=== PATIENT | female | born 1995 | race Caucasian/White ===

== ENCOUNTER 2019-12-24 12:08 | Inpatient (IN) | payer MEDICAID, SELFPAY ==
[2019-12-24] VITALS (7 sets, daily range): BP systolic 117–140; BP diastolic 69–93; PULSE 84–117; RESP 16–22; TEMP 36.6–37; O2SAT 95–97; BMI 31.0; BMI 31.1
--- NOTE | 2019-12-24 12:28 | EKG12_ITS ---
Test Reason : DYSRHYTHMIA Blood Pressure : / mmHG Vent. Rate : 114 BPM Atrial Rate : 114 BPM P-R Int : 132 ms QRS Dur : 090 ms QT Int : 340 ms P-R-T Axes : 070 063 039 degrees QTc Int : 468 ms Sinus tachycardia Right atrial enlargement Nonspecific ST and T wave abnormality Abnormal ECG Confirmed by ALEXIS LEVIN, TATYANA ([id number]), scientific editor ERNESTINA MEADOWS ([id number]) on 12/28/2019 10:41:57 AM Referred By: JENISE Confirmed By:TATYANA ESPINOZA MD
--- NOTE | 2019-12-24 12:29 | ED.VISSUMM ---
- ER Visit Summary Date of Service: 12/24/19 Chief Complaint: My lungs hurt and I have upper abdominal pain for 2 weeks History of Present Illness: The patient is a 24 F history of rheumatoid arthritis and migraine headaches. States the last 2 weeks she has had epigastric abdominal pain. States her lungs hurt. She is had a subjective fever and cough. She is also had nausea, vomiting and diarrhea. Denies any hematemesis. No documented fever. No recent travel, surgery or immobilization. No leg pain or swelling. No history of DVT or PE. No hemoptysis. Physical Examination: Young female no acute distress vital signs stable afebrile. Pulse ox 95% on room air no signs of hypoxia. HEENT exam mild dry mucous membranes. Neck nontender no lymphadenopathy. Lungs clear to auscultation bilaterally. Heart regular rhythm rate about 110 no murmur. Abdomen soft. Mild epigastric tenderness. No rebound, guarding or rigidity. No Box sign. No McBurney's point tenderness. No distention. Patient is moving all 4 extremities. Calves are nontender without edema or cords. Neurologically she is awake alert with no focal motor deficits. Test Results: White count of 18,100. H&H 11 and 34. Platelets 744,000. Electrolytes show sodium 131. Potassium is 3. Normal creatinine gap. Liver enzymes are elevated total bilirubin 2.3 alk phos 251. Lipase normal. Lactate normal 1.3. Chest x-ray shows no acute process. Radiologist says there may be findings in the base but there not impressive on the x-ray themselves. Right upper quadrant ultrasound shows no gallstones. No pericholecystic fluid is read as normal by the radiologist. Urinalysis shows positive nitrates and microscopic blood. Greater than 100 white cells in the micro and 3+ bacteria sent for culture. I will give her a dose of Rocephin. Emergency Department Course and Treatment: Patient treated with IV fluids for nausea and vomiting and Zofran. Labs are being obtained. IV Rocephin. Patient treated with IV fluids and Zofran. On repeat exam at 1537 she is having discomfort was given also morphine a second dose of Zofran. She normally over test results. I do not have a specific cause at this time for her white count and her elevated liver enzymes. The ultrasound was read as normal. I am obtaining a CAT scan which to be checked out to the afternoon physician and the urinalysis micro is pending also. Treatment Plan: I have the hospitalist on page for possible admission. Disposition: Impression: Acute nausea, vomiting and diarrhea Acute epigastric abdominal pain. Acute leukocytosis uncertain etiology Acute elevated liver enzymes of uncertain etiology Acute UTI This note was generated with [employer] dictation software. It may contain incorrect words, spelling, and punctuation that were not noted in review of the chart prior to signing ED Disposition - Plan for ED Patient: Referrals: Care Physician,No Primary [Primary Care Provider] -
[2019-12-24] MEDS: Ondansetron 4 MG/2 ML Vial IV ×2 (12:37→16:46)
[2019-12-24] MEDS: 0.9% Normal Saline 1,000 ML 1000 ML IV (12:37)
[2019-12-24 12:47] LABS: Absolute Lymphocyte Count 0.95 X10^3/uL (0.83-4.51); Absolute Neutrophil Count 15.6 X10^3/uL (2.0-7.7); Basophil# 0.04 X10^3/uL; Basophil% 0.2 % (0-1); Eosinophil# 0.15 X10^3/uL; Eosinophils% 0.8 % (0-5); Hematocrit 34.2 % (37-47); Hemoglobin 11.3 g/dL (12.0-15.0); Lymphocyte # 0.95 X10^3/ul (4.0); Lymphocyte % 5.2 % (19-41); Mean Corpuscular Volume 96.9 fL (81-99); Monocyte# 1.16 X10^3/uL; Monocyte% 6.4 % (0-10); NRBC Flagged by Analyzer 0 % (0-5); Neutrophil # 15.63 X10^3/uL (2.7-7.7); Neutrophil % 86.2 % (47-70); Platelet Count 744 K/mm3 (150-450); RBC Distribution Width CV 12.9 % (11.6-14.6); RBC Distribution Width SD 45.6 fl (35.1-43.9); Red Blood Count 3.53 M/mm3 (4.2-5.4); White Blood Count 18.1 K/mm3 (4.4-11.0)
--- NOTE | 2019-12-24 12:51 | RAD_ITS ---
STUDY: X-RAY CHEST REASON FOR EXAM: Female, 24 years old. SOB, PRODUCTIVE, N/V/D, ABD PAIN, BODY ACHES ALMOST 2 WEEKS TECHNIQUE: Single AP portable view of the chest. COMPARISON: None. FINDINGS: EKG electrodes are seen. Hyperinflation. Mild degree of increased interstitial markings at the lung bases with areas of confluence worse on the left side. A viral type of infiltrate should be ruled out. There is no demonstrated pleural abnormality. Normal size heart. Normal mediastinum and alan. Normal visualized pulmonary arteries. Normal visualized aortic arch and descending thoracic aorta. Normal visualized thoracic spine. Normal visualized ribs, clavicles, and shoulders. There is no demonstrated abnormality of the visualized soft tissue structures of the upper abdomen. RAD/Chest 1 View (Portable) IMPRESSION: Mild increased markings at the lung bases suggestive of possible viral infiltrate. Electronically Signed: Artem Nguyen, at 13:06 EDT , Service support ,
[2019-12-24 13:09] LABS: AST(SGOT) 136 U/L (15-37); Alanine Aminotransfer ALT/SGPT 78 U/L (13-56); Alkaline Phosphatase 255 U/L (45-117); Anion Gap 13 (5-15); BUN 9 mg/dL (7-18); BUN/Creat Ratio 11.3 RATIO (10-20); Bilirubin, Direct 1.39 mg/dL (0.00-0.30); Calcium,Total 9.4 mg/dL (8.5-10.1); Chloride 93 mmol/L (98-107); EST Glomerular Filtration Rate 93 mL/min (>60); Est Glom Filt Rate - Afr Amer 113 mL/min (>60); Estimated Creatinine Clearance 109.38 ml/min; Globulin 6.9 g/dL (2.2-4.2); Glucose 102 mg/dL (74-106); Lipase 46 U/L (73-393); Protein, Total 8.9 g/dL (6.4-8.2); Sodium Level 131 mmol/L (136-145)
--- NOTE | 2019-12-24 13:31 | US_ITS ---
STUDY: ABDOMINAL ULTRASOUND - RIGHT UPPER QUADRANT REASON FOR VISIT: Female, 24 years old ABDOMEN AND CHEST PAIN TECHNIQUE: Ultrasound evaluation of the right upper quadrant was performed with real-time and static abdi-scale imaging. TECHNICAL QUALITY: Adequate. COMPARISON: None. FINDINGS: Liver: The liver measures 15 cm. There is normal echogenicity of the liver. The bile ducts are within normal limits. There is hepatic color flow. The direction of portal flow is hepatopetal. There is no demonstrated mass lesion. Gallbladder: Normal distended gallbladder. The gallbladder wall measures 1.7 mm. There is a negative sonographic Box''s sign. There is no pericholecystic fluid. There are no gallstones. Common Bile Duct (C.B.D.): The common bile duct measures 1.7 mm. Pancreas: Normal size of the head, body and tail of the pancreas. There is normal echogenicity of the pancreas. There is no demonstrated pancreatic mass or cyst. Right Kidney: Normal size of the right kidney. The right kidney measures 10.8 cm x 5.9 cm x 5.6 cm. Normal renal cortex. The right cortex measures 1.9 cm. There is no demonstrated renal mass or cyst. There is no right hydronephrosis. US/Gallbladder IMPRESSION: Normal right upper quadrant ultrasound examination. Electronically Signed: Artem Nguyen, at 15:33 EDT , Service support ,
[2019-12-24 14:14] LABS: Lactic Acid 1.3 mmol/L (0.4-1.9)
--- NOTE | 2019-12-24 14:44 | ED.RN ---
ok to take pt out of covid precautions by
[2019-12-24 15:17] LABS: Mucous, Urine 0 SEEN /hpf (<or=2+); Squamous Epithelial Cells - UA 0 SEEN /hpf (5-10)
[2019-12-24 15:20] LABS: Color, Urine Yellow (Yellow); Glucose, Dipstick Normal (Normal); Ketone-Dipstick 50 mg/dl (Negative); Leukocyte Esterase-Dipstick 100 /ul (Negative); Nitrite-Dipstick Positive (Negative); Occult Blood-Urine 250 /ul (Negative); Protein-Dipstick 30 mg/dl (Negative); Urine Clarity Cloudy (Clear); Urine Urobilinogen 12 mg/dl (Normal); Urine pH 6.5 (5.0 - 8.0)
[2019-12-24 15:22] LABS: Urine Bilirubin Dipstick 3 mg/dL (Negative)
--- NOTE | 2019-12-24 15:40 | CT_ITS ---
STUDY: CT ABDOMEN AND PELVIS WITHOUT CONTRAST REASON FOR EXAM: Female, 24 years old. ABD PAIN WITH LEUKOCYTOSIS. Productive cough, N/V/D and body aches x 2 weeks. Hx of RA RADIATION DOSAGE (If Supplied By Facility): CTDIvol = ( 13.28 ) mGy, DLP = ( 1022.65 ) mGycm TECHNIQUE: Transaxial images were obtained from the dome of the diaphragm to the symphysis pubis without oral contrast, and without intravenous contrast. Sagittal and coronal images were reconstructed. Individualized dose optimization techniques were used for this CT. COMPARISON: None. FINDINGS: Hazy opacities in the lower lobes bilaterally, greater on the left. Heart size is normal. The liver is unremarkable. The gallbladder is unremarkable. The spleen and pancreas are unremarkable. The adrenal glands are normal. The kidneys are unremarkable. No stones or hydronephrosis. The aorta is normal in caliber. There is no free fluid, free air, or organized collection. No bowel obstruction or inflammatory change. Normal appendix. Urinary bladder is nondistended. Normal abdominal wall. Normal osseous structures. CT/Abdomen/Pelvis W IV Cont ONLY IMPRESSION: 1. Hazy, groundglass opacities in the lung bases, greater on the left. Findings are concerning for pneumonia, including possible viral etiology. Otherwise unremarkable CT abdomen and pelvis. Electronically Signed: Karina Alberts MD at 16:37 EDT Tel , Service support ,
[2019-12-24 15:44] LABS: Red Blood Cells-Urine > 100 SEEN /hpf (0-5); White Blood Cells 10-25 SEEN /hpf (0-5)
[2019-12-24 15:45] LABS: Bacteria 3+ /hpf (None Seen)
[2019-12-24] MEDS: Ceftriaxone 1 GM/50 ML BAG IV (16:35)
[2019-12-24] MEDS: morphine 8 MG/ML Syringe 6 MG IV (16:44)
--- NOTE | 2019-12-24 16:49 | PCM.HP.STD ---
Problem List (1) Pyelonephritis Status: Acute (2) Thrombocytosis Status: Acute (3) Intractable diarrhea Status: Acute (4) Hyponatremia Status: Acute (5) Hypokalemia Status: Acute (6) Abnormal LFTs Status: Acute (7) History of rheumatoid arthritis Status: Chronic (8) Normochromic normocytic anemia Status: Acute History of Present Illness Date of Admission: 12/24/19 Chief Complaint: diarrhea, nausea and vomiting, chest pain, dry cough, muscle pain The patient is a 24 year old F with a past medical history of rheumatoid arthritis, neuropathic pain for which she takes Neurontin and obesity who presented to the ED at [facility] [place] on next 1919 complaining of a two-week history of diarrhea, nausea/vomiting, diffuse muscle pain, dry cough, shortness of breath and chest pain. She denies any loss of smell or loss of taste. She has no sick contacts. She says she was having 8-10 stools a day. She denies dysuria, rigors, fevers. Vital signs at presentation to the emergency department are temperature 97.8, pulse rate 117, blood pressure 137/93, respiratory rate 22 and she was 95% saturated on room air. White blood cell count is elevated at 18.1 with left shift. Hemoglobin is 11.3 with normochromic normocytic indices and the platelet count was increased at 744,000. Sodium is low at 131 and the potassium is low at 3.0. Serum bicarb is 25. The BUN is 9 with a creatinine of 0.8. Total bilirubin was increased at 2.3 with a direct bilirubin of 1.39. AST is 136 and the ALT is 78 with an alkaline phosphatase of 255. Lipase is 46 and the serum albumin is low at 2. UA shows greater than 100 RBCs per high-power field and 10-25 WBCs. There was 3+ bacteria and it was nitrite positive. She had positive ketones. Chest x-ray per my review shows atelectasis in the bases however the radiologist reported increased markings suggestive of possible viral infiltrate. Right upper quadrant ultrasound was normal. CT scan of the abdomen and pelvis showed hazy groundglass opacities in the lung bases, greater on the left which was concerning for pneumonia. The abdomen and pelvis were unremarkable. She is being admitted for pyelonephritis but will keep in the ED until the COVID test comes back in light of the abn LFT's and the ground glass infiltrates in both lung bases. Past Medical History Past Medical History (Chronic Problems): Chronic Problems History of rheumatoid arthritis (Chronic) Allergies No Known Allergies Allergy (Verified 12/24/19 12:10) Home Medications: Ambulatory Orders Medication Instructions Recorded Duloxetine HCl 60 mg PO DAILY 12/24/19 Gabapentin 1,200 mg PO QHS 12/24/19 Gabapentin 600 mg PO DAILY@1200 12/24/19 Hydroxychloroquine [Plaquenil] 200 mg PO DAILYCM 12/24/19 Sumatriptan Succinate [Imitrex] 100 mg PO DAILY PRN PRN 12/24/19 Surgical History: no surgical history Psychiatric History: Depression - ? 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 No shaking chills/rigors, Malaise, Weakness. Denies: Chills, Weight Change Eyes: Denies: Blurred vision, Redness, Vision Change HEENT: Denies: Difficulty Hearing, Difficulty Swallowing, Eye Pain, Head Aches, Sinus Congestion, Sinus Drainage, Sore Throat Cardiovascular: Reports: Chest Pain - she describes burning in her anterior chest wall that is constant, Light Headedness. Denies: Edema, Palpitations Respiratory: Reports: Cough - non-productive, Shortness of Breath, Shortness of breath at rest, Shortness of breath upon exertion. Denies: Hemoptysis, Sputum production, Wheezing Gastrointestinal: Reports: Abdominal Pain - in the R upper abdomen, Diarrhea, Nausea, Vomiting, - - decreased appetite. Denies: Hematemesis, Hematochezia Genitourinary: Denies: Dysuria, Frequency Gynecological: Denies: Vaginal discharge Musculoskeletal: Reports: Joint Pain, Joint Tenderness, Muscle pain. Denies: Neck Pain Skin: Denies: Jaundice, Rash, Wounds Neurological: Denies: Balance problems, Slurred speech, Confusion, Focal weakness, Numbness, Tingling, Tremor, Seizures Psychiatric: Reports: Depression - possibly. Denies: Anxiety, Homicidal Ideations, Suicidal Ideations Endocrine: Denies: Hx of Thyroiditis Hematologic/ Lymphatic: Denies: Easy Bruising, Easy Bleeding, Hx of blood clot VTE Information - Inpt Only VTE Present on Admission: No VTE Mechan Device Prophylaxis: Knee High TRAVON Hose VTE Pharm Prophylaxis ordered?: Yes Patient Problems: Active and Suspected Problems Pyelonephritis (Acute) Thrombocytosis (Acute) Intractable diarrhea (Acute) Hyponatremia (Acute) Hypokalemia (Acute) Abnormal LFTs (Acute) Normochromic normocytic anemia (Acute) - Physical Exam Vitals/I&O's: Vital Signs Temp Pulse Resp BP Pulse Ox 97.8 F 108 H 20 H 122/82 H 96 12/24/19 12:10 12/24/19 14:48 12/24/19 14:48 12/24/19 14:48 12/24/19 14:48 Oxygen Delivery Method Room Air Weight: 204 lb 2.369 oz Body Mass Index (BMI) 31.0 Intake and Output for Last 24 Hours 12/22/19 12/23/19 12/24/19 23:59 23:59 23:59 Intake Total 1000 / 1000 Balance 1000 / 1000 General: Alert, Oriented x3, Cooperative, - - she looks ill and tired. She is pale HEENT: Atraumatic, PERRLA, EOMI, Normocephalic Oral: No Gingival or Mucosal Lesions/ Ulcerations, Dry Mucosa Neck: Supple, No JVD, Negative Carotid Bruits, No Nodes, No Nuchal Rigidity, Trachea Midline Lungs: No rhonchi, No wheeze, Diminished - with a poor inspiratory effort, Rales - in the bases only Cardiovascular: Regular Rhythm, No murmurs, No Ectopic Activity, No rub noted, No Gallop, Tachycardic Abdomen: Bowel Sounds Present, Soft, Non-Distended, Tender - she complained of tenderness in the RUQ with palpation...no guarding and when I pressed on the abd in the RUQ with the stethoscop she had no c/o pain until I started to palpate Extremities: No clubbing, No cyanosis, No edema, Capillary Refill Less than 3 Seconds, No Calf Tenderness, Peripheral Pulses Normal Skin: No breakdown, - - she has a red rash behind the R ear.... Musculoskeletal: No Muscle Wasting, - - no red swollen joints. She is very tender to palpation at the right costophrenic angle Neurological: Cranial nerves II-XII grossly intact, Neuro grossly intact Psych/Mental Status: Normal Affect, Appropriate Laboratory Results 12/24/19 12:05: WBC 18.1 H, RBC 3.53 L, Hgb 11.3 L, Hct 34.2 L, MCV 96.9, MCH 32.0, MCHC 33.0, RDW Std Deviation 45.6 H, RDW Coeff of Maite 12.9, Plt Count 744 H, MPV 10.0, Immature Gran % (Auto) 1.200 H, Neut % (Auto) 86.2 H, Lymph % (Auto) 5.2 L, Elmore % (Auto) 6.4, Eos % (Auto) 0.8, Baso % (Auto) 0.2, Absolute Neuts (auto) 15.6 H, Absolute Lymphs (auto) 0.95, Nucleated RBC % 0 12/24/19 12:05: Sodium 131 L, Potassium 3.0 L, Chloride 93 L, Carbon Dioxide 25.0, Anion Gap 13, BUN 9, Creatinine 0.80, Estim Creat Clear Calc 109.38, Est GFR (MDRD) Af Amer 113, Est GFR (MDRD) Non-Af 93, BUN/Creatinine Ratio 11.3, Glucose 102, Calcium 9.4, Total Bilirubin 2.30 H, Direct Bilirubin 1.39 H, AST 136 H, ALT 78 H, Alkaline Phosphatase 255 H, Total Protein 8.9 H, Albumin 2.0 L, Globulin 6.9 H, Lipase 46 L 12/24/19 13:35: Lactic Acid 1.3 12/24/19 15:03: Urine Color Yellow, Urine Clarity Cloudy, Urine pH 6.5, Ur Specific Lewis 1.010, Urine Protein 30 H, Urine Glucose (UA) Normal, Urine Ketones 50 H, Urine Occult Blood 250 H, Urine Nitrite Positive H, Urine Bilirubin 3 H, Urine Urobilinogen 12 H, Ur Leukocyte Esterase 100 H, Urine RBC > 100 SEEN, Urine WBC 10-25 SEEN, Ur Squamous Epith Cells 0 SEEN, Urine Bacteria 3+, Urine Mucus 0 SEEN Assessment/Plan All Active Problems Pyelonephritis (Acute) Thrombocytosis (Acute) Intractable diarrhea (Acute) Hyponatremia (Acute) Hypokalemia (Acute) Abnormal LFTs (Acute) Normochromic normocytic anemia (Acute) Impressions 1. Pyelonephritis 2. Bibasilar groundglass infiltrates associated with abnormal LFTs, diffuse myalgias, cough, diarrhea and N/V, thrombocytosis - COVID testing ordered 3. Thrombocytosis 4. Normochromic normocytic anemia 5. History of rheumatoid arthritis-on Plaquenil only 6. Chronic neuropathic pain on gabapentin 600 mg 3 times daily 7. Possible depression-she is on Cymbalta and denies history of depression, Cymbalta possibly being used for chronic pain 8. Abnormal LFTs Urine for streptococcal antigen Urine for Legionella antigen Respiratory panel Blood cultures ?2 Incentive spirometry Ambulatory pulse ox prior to DC maintain in the ED until the COVID test is resulted Rocephin 1 GM IV daily - received the first dose in the ED Lactic acid Stool for fecal leukocytes, enteric pathogen panel and Hemoccult Clear liquid diet pain control D DIMER DVT prophylaxis with Lovenox 40 mg subcu daily Protonix 40 mg IV daily Antiemetics Urine culture Inpatient E&M: 84339 Init Hosp L3
--- NOTE | 2019-12-24 18:36 | NURSING ---
Not up to floor yet. Ijeoma RN called ED to see why pt not up on floor. They are waiting on results of COVID.
[2019-12-24 18:43] LABS: CPK Total, Creatine Kinase 34 U/L (26-192)
[2019-12-24 19:41] LABS: Lactic Acid 1.1 mmol/L (0.4-1.9)
[2019-12-24 21:48] LABS: Magnesium 2.3 mg/dL (1.6-2.6); Phosphorus 3.6 mg/dL (2.5-4.9)
[2019-12-24] MEDS: 0.9% Saline Lock 10 ML Syringe IV ×2 (21:49→23:28)
[2019-12-24] MEDS: DULoxetine Hcl 30 MG Capsule PO (21:49)
[2019-12-24] MEDS: Gabapentin 600 MG Tablet PO (21:49)
[2019-12-24] MEDS: Hydroxychloroquine 200 MG Tablet PO (21:49)
[2019-12-24 22:18] LABS: D-Dimer Quantitative (DVT/PE) 1.82 FEU/ug/m (0.27-0.49)
[2019-12-24 22:24] LABS: Lactic Acid 1.8 mmol/L (0.4-1.9)
[2019-12-24] MEDS: Morphine 4 MG/ML Syringe IV (23:26)
[2019-12-24] MEDS: Ciprofloxacin 400 MG/200 ML BAG 200 MG IV (23:27)
--- NOTE | 2019-12-24 23:48 | NURSING ---
Chest Ct retimed per CT department d/t contrast timing, Dr. Jean aware from CT department.
[2019-12-25 03:30] VITALS: BP 107/50; PULSE 77; RESP 18; TEMP 37.1; O2SAT 96
[2019-12-25] MEDS: Enoxaparin 40 MG/0.4 ML Syringe SC (05:39)
--- NOTE | 2019-12-25 05:55 | EKG12_ITS ---
Test Reason : AM EKG Blood Pressure : / mmHG Vent. Rate : 101 BPM Atrial Rate : 101 BPM P-R Int : 144 ms QRS Dur : 096 ms QT Int : 536 ms P-R-T Axes : 066 053 066 degrees QTc Int : 695 ms Sinus tachycardia Nonspecific ST and T wave abnormality Prolonged QT Abnormal ECG When compared with ECG of 24-DEC-2019 12:54, MANUAL COMPARISON REQUIRED, DATA IS UNCONFIRMED Confirmed by ALEXIS LEVIN, TATYANA ([id number]), metropolitan editor ERNESTINA MEADOWS ([id number]) on 12/28/2019 11:02:30 AM Referred By: RONNIE Confirmed By:TATYANA ESPINOZA MD
[2019-12-25 06:39] LABS: Absolute Lymphocyte Count 1.42 X10^3/uL (0.83-4.51); Absolute Neutrophil Count 11.2 X10^3/uL (2.0-7.7); Basophil# 0.04 X10^3/uL; Basophil% 0.3 % (0-1); Eosinophil# 0.36 X10^3/uL; Eosinophils% 2.5 % (0-5); Hematocrit 29.2 % (37-47); Hemoglobin 9.7 g/dL (12.0-15.0); Lymphocyte # 1.42 X10^3/ul (4.0); Lymphocyte % 9.9 % (19-41); Mean Corp Hgb Conc 33.2 g/dL (32-36); Mean Corpuscular Hgb 32.4 pg (27.0-32.0); Mean Corpuscular Volume 97.7 fL (81-99); Mean Platelet Vol. 9.3 fl (6.2-12.0); Monocyte# 1.02 X10^3/uL; Monocyte% 7.1 % (0-10); NRBC Flagged by Analyzer 0 % (0-5); Neutrophil % 78.5 % (47-70); Platelet Count 682 K/mm3 (150-450); RBC Distribution Width CV 12.9 % (11.6-14.6); RBC Distribution Width SD 45.9 fl (35.1-43.9); Red Blood Count 2.99 M/mm3 (4.2-5.4); White Blood Count 14.3 K/mm3 (4.4-11.0)
[2019-12-25 07:16] LABS: ALB/GLOB Ratio 0.3 RATIO (0.9-2.4); AST(SGOT) 90 U/L (15-37); Alanine Aminotransfer ALT/SGPT 58 U/L (13-56); Albumin, Serum 1.8 g/dL (3.2-5.0); Alkaline Phosphatase 205 U/L (45-117); Anion Gap 10 (5-15); BUN 7 mg/dL (7-18); BUN/Creat Ratio 15.2 RATIO (10-20); Calcium,Total 8.7 mg/dL (8.5-10.1); Chloride 96 mmol/L (98-107); Creatinine, Serum 0.46 mg/dL (0.55-1.02); EST Glomerular Filtration Rate 176 mL/min (>60); Est Glom Filt Rate - Afr Amer 213 mL/min (>60); Estimated Creatinine Clearance 190.23 ml/min; Globulin 5.5 g/dL (2.2-4.2); Glucose 97 mg/dL (74-106); Magnesium 2.2 mg/dL (1.6-2.6); Phosphorus 3.9 mg/dL (2.5-4.9); Potassium 3.1 mmol/L (3.5-5.1); Protein, Total 7.3 g/dL (6.4-8.2); Sodium Level 133 mmol/L (136-145)
[2019-12-25 08:42] VITALS: O2SAT 95
[2019-12-25 08:47] VITALS: BP 114/47; PULSE 108; RESP 18; TEMP 37.1; O2SAT 98
[2019-12-25] MEDS: Ensure Clear 120 ML Liquid PO (08:51)
[2019-12-25] MEDS: Gabapentin 600 MG Tablet PO ×3 (08:52→17:14)
[2019-12-25] MEDS: Ciprofloxacin 400 MG/200 ML BAG 200 MG IV ×2 (08:52→21:27)
[2019-12-25] MEDS: Hydroxychloroquine 200 MG Tablet PO ×2 (08:55→17:13)
--- NOTE | 2019-12-25 09:00 | CT_ITS ---
STUDY: CTA CHEST REASON FOR EXAM: Female, 24 years old. R/O PE, COUGH ,SOB X 2 WEEKS. NEG FOR COVID RADIATION DOSAGE (If Supplied By Facility): CTDIvol = ( 10.01 ) mGy, DLP = ( 421.51 ) mGycm TECHNIQUE: The examination was performed with the intravenous administration of 100ML ISOVUE 370. Post-processing of the angiographic images was performed, with multiplanar reformation and 3D reconstruction. Individualized dose optimization techniques were used for this CT. COMPARISON: None. FINDINGS: Normal enhancement of the main pulmonary artery and right and left pulmonary arteries. Normal enhancement of the bilateral peripheral pulmonary arteries. There is no demonstrated pulmonary embolism. Normal thoracic aorta and visualized great vessels. There is no demonstrated aortic dissection. Normal heart and pericardium. Normal mediastinum. Normal hilar regions. Normal visualized trachea and bronchi. The lungs are well expanded. Throughout the pulmonary parenchyma are ill-defined appearance interlobar groundglass opacities throughout the lung parenchyma with small question of centrilobular nodules spread throughout. There appears to be a peripheral region of opacity likely showing peripheral lack of nodularity airspace disease most prominent within the lower lungs. Normal pleura. Normal chest wall structures. Normal osseous structures. Normal visualized upper abdomen. CT/CTA Chest W/WO Contrast IMPRESSION: 1. No evidence of pulmonary embolism or aortic dissection. 2. Diffuse areas of likely centrilobular groundglass opacities and punctate nodularity which is most concerning for underlying hypersensitivity pneumonitis. Underlying infectious airway mycobacterial infection is also a consideration with underlying vasculitis, pulmonary edema and bronchioloalveolar carcinoma less likely. Electronically Signed: Nikhil Rice DO at 9:50 EDT , Service support ,
--- NOTE | 2019-12-25 10:33 | PCM.PN.HOSP ---
Patient Problems: Active and Suspected Problems Pyelonephritis (Acute) Thrombocytosis (Acute) Intractable diarrhea (Acute) Hyponatremia (Acute) Hypokalemia (Acute) Abnormal LFTs (Acute) Normochromic normocytic anemia (Acute) Subjective: Feeling better today than when she came in. No not back to baseline, her pain has improved a little bit though she does have chronic back pain. Vitals/I&O's: Vital Signs Temp Pulse Resp BP Pulse Ox 98.8 F 108 H 18 114/47 L 98 12/25/19 08:47 12/25/19 08:47 12/25/19 08:47 12/25/19 08:47 12/25/19 08:47 Oxygen Delivery Method Room Air Weight: 204 lb 12.951 oz Body Mass Index (BMI) 31.1 Intake and Output for Last 24 Hours 12/23/19 12/24/19 12/25/19 23:59 23:59 23:59 Intake Total 1327.5 / 1327.5 1345.0 / 1345.0 Output Total 820 / 820 Balance 1327.5 / 1327.5 525.0 / 525.0 General: Alert, Oriented x3, Cooperative, No apparent distress HEENT: Atraumatic, PERRLA, EOMI, Normocephalic Oral: Moist Mucosa Neck: Supple, No JVD Lungs: Clear to auscultation, Normal air movement, No rhonchi, No wheeze, No rales Cardiovascular: Regular rate, Regular Rhythm, Normal S1, Normal S2, No murmurs Abdomen: Soft, Non Tender, Non-Distended, No Hepato-splenomegaly Extremities: No edema, Capillary Refill Less than 3 Seconds Skin: No rashes, No breakdown Neurological: Neuro grossly intact, Sensory exam intact to light touch and pain Psych/Mental Status: Normal Affect, Appropriate Microbiology Past 72 Hours 12/24/19 23:10 Mucosa - Nasopharyngeal Respiratory Panel (PCR) - Final 12/24/19 21:25 Urine, Random Streptococcus pneumoniae Antigen (M - Final 12/24/19 21:25 Urine, Random Legionella Antigen - Final Laboratory Results 12/24/19 12:05: WBC 18.1 H, RBC 3.53 L, Hgb 11.3 L, Hct 34.2 L, MCV 96.9, MCH 32.0, MCHC 33.0, RDW Std Deviation 45.6 H, RDW Coeff of Maite 12.9, Plt Count 744 H, MPV 10.0, Immature Gran % (Auto) 1.200 H, Neut % (Auto) 86.2 H, Lymph % (Auto) 5.2 L, [place] % (Auto) 6.4, Eos % (Auto) 0.8, Baso % (Auto) 0.2, Absolute Neuts (auto) 15.6 H, Absolute Lymphs (auto) 0.95, Nucleated RBC % 0 12/24/19 12:05: Sodium 131 L, Potassium 3.0 L, Chloride 93 L, Carbon Dioxide 25.0, Anion Gap 13, BUN 9, Creatinine 0.80, Estim Creat Clear Calc 109.38, Est GFR (MDRD) Af Amer 113, Est GFR (MDRD) Non-Af 93, BUN/Creatinine Ratio 11.3, Glucose 102, Calcium 9.4, Total Bilirubin 2.30 H, Direct Bilirubin 1.39 H, AST 136 H, ALT 78 H, Alkaline Phosphatase 255 H, Total Protein 8.9 H, Albumin 2.0 L, Globulin 6.9 H, Lipase 46 L 12/24/19 12:05: Total Creatine Kinase 34 12/24/19 12:15: Phosphorus 3.6, Magnesium 2.3 12/24/19 13:35: Lactic Acid 1.3 12/24/19 15:03: Urine Color Yellow, Urine Clarity Cloudy, Urine pH 6.5, Ur Specific [place] 1.010, Urine Protein 30 H, Urine Glucose (UA) Normal, Urine Ketones 50 H, Urine Occult Blood 250 H, Urine Nitrite Positive H, Urine Bilirubin 3 H, Urine Urobilinogen 12 H, Ur Leukocyte Esterase 100 H, Urine RBC > 100 SEEN, Urine WBC 10-25 SEEN, Ur Squamous Epith Cells 0 SEEN, Urine Bacteria 3+, Urine Mucus 0 SEEN 12/24/19 17:43: COVID-19 (GERI) Not Detected 12/24/19 18:55: Lactic Acid 1.1 12/24/19 21:50: D-Dimer Quant (PE/DVT) 1.82 H* 12/24/19 21:50: Lactic Acid 1.8 12/25/19 06:23: WBC 14.3 H, RBC 2.99 L, Hgb 9.7 L, Hct 29.2 L, MCV 97.7, MCH 32.4 H, MCHC 33.2, RDW Std Deviation 45.9 H, RDW Coeff of [place] 12.9, Plt Count 682 H, MPV 9.3, Immature Gran % (Auto) 1.700 H, Neut % (Auto) 78.5 H, Lymph % (Auto) 9.9 L, [place] % (Auto) 7.1, Eos % (Auto) 2.5, Baso % (Auto) 0.3, Absolute Neuts (auto) 11.2 H, Absolute Lymphs (auto) 1.42, Nucleated RBC % 0 12/25/19 06:23: Sodium 133 L, Potassium 3.1 L, Chloride 96 L, Carbon Dioxide 27.0, Anion Gap 10, BUN 7, Creatinine 0.46 L, Estim Creat Clear Calc 190.23, Est GFR (MDRD) Af Amer 213, Est GFR (MDRD) Non-Af 176, BUN/Creatinine Ratio 15.2, Glucose 97, Calcium 8.7, Phosphorus 3.9, Magnesium 2.2, Total Bilirubin 1.90 H, AST 90 H, ALT 58 H, Alkaline Phosphatase 205 H, Total Protein 7.3, Albumin 1.8 L, Globulin 5.5 H, Albumin/Globulin Ratio 0.3 L 12/25/19 06:23: Phosphorus Cancelled Current Medications Acetaminophen (Tylenol) 650 mg PO Q6H PRN PRN PRN Reason: Pain Score 1-10/Temp > 100.7 F Duloxetine HCl (Cymbalta) 30 mg PO QHS [facility] Enoxaparin Sodium (Lovenox) 40 mg SC DAILY@0600 [facility] Last Admin: 12/25/19 05:39 Dose: 40 mg Documented by: Gabapentin (Neurontin) 600 mg PO TIDCM [facility] Last Admin: 12/25/19 08:52 Dose: 600 mg Documented by: Guaifenesin (Robitussin) 20 ml PO Q4H PRN PRN PRN Reason: COUGH Hydroxychloroquine Sulfate (Plaquenil) 200 mg PO BIDCM [facility] Last Admin: 12/25/19 08:55 Dose: 200 mg Documented by: Ciprofloxacin (Cipro) 400 mg in 200 mls @ 200 mls/hr IV Q12 [facility] Stop: 12/31/19 22:01 Last Admin: 12/25/19 08:52 Dose: 200 mls/hr Documented by: Potassium Chloride 20 meq/ (Lactated Ringer's) 1,010 mls @ 150 mls/hr IV .[id number] [facility] Last Infusion: 12/25/19 08:52 Dose: 0 mls/hr Documented by: Pantoprazole Sodium 40 mg/ (Sodium Chloride) 110 mls @ 330 mls/hr IV Q24 [facility] Last Infusion: 12/24/19 23:28 Dose: Infused Documented by: Sodium Chloride () 250 mls @ 15 mls/hr IV .[id number] PRN PRN Reason: Saline Flush Sodium Chloride () 250 mls @ 15 mls/hr IV .[id number] PRN PRN Reason: Additional IVPB Infusion Morphine Sulfate () 4 mg IV Q3H PRN PRN PRN Reason: Pain Score 6-10/10 Last Admin: 12/24/19 23:26 Dose: 4 mg Documented by: Nutritional Formula (Lactose Free) (Ensure Clear) 120 ml PO TIDCM [facility] Last Admin: 12/25/19 08:51 Dose: 120 ml Documented by: Oxycodone HCl (Oxyir) 5 - 10 mg PO Q4H PRN PRN PRN Reason: Pain Score 4-5/10 Prochlorperazine Edisylate (Compazine Iv) 5 mg IV Q4H PRN PRN PRN Reason: Breakthrough nausea/vomiting Sodium Chloride () 10 - 40 ml IV UD PRN PRN Reason: SALINE FLUSH Last Admin: 12/24/19 23:28 Dose: 10 ml Documented by: Zolpidem Tartrate (Ambien (Generic)) 5 mg PO QHS PRN PRN PRN Reason: INSOMNIA STROKE Vital Signs/Narrative: Vital Signs Temp Pulse Resp BP Pulse Ox 12/25/19 08:47 98.8 F 108 H 18 114/47 L 98 12/25/19 08:42 95 Medical Necessity - Tobacco Use Smoking Status: Never smoker Tobacco Use: Non-smoker Assessment/Plan All Active Problems Pyelonephritis (Acute) Thrombocytosis (Acute) Intractable diarrhea (Acute) Hyponatremia (Acute) Hypokalemia (Acute) Abnormal LFTs (Acute) Normochromic normocytic anemia (Acute) 1. Pyelonephritis/elevated LFTs -UA is fairly significant for UTI, urine cultures pending -Continue with Cipro IV twice daily for now she would like to stay 1 more day to see if she can feel better. -Pyelonephritis infection is the likely culprit for her thrombocytosis and elevated d-dimer -Bilirubin is trending down, and CT of her abdomen pelvis as well as her gallbladder ultrasound were negative for any gallbladder pathology -Liver is unremarkable -Continue to trend LFTs, she has no previous labs in our system -COVID test negative and there is an alternative diagnosis 2. RA/normocytic normochromic anemia -Her anemia is likely chronic secondary to her RA -Continue with her Plaquenil 3. migraines with chronic narcotic -Stable -Continue with Cymbalta, gabapentin, and Imitrex DVT: Lovenox Inpatient E&M: 22483 Subs Hosp L2
--- NOTE | 2019-12-25 11:17 | NURSING ---
Pt does not wish for this nurse to call anyone with mason;y update
--- NOTE | 2019-12-25 11:44 | CASEMGMT ---
LENY TYSON assessment: Face to Face with patient for initial transition planning/care coordination assessment. LENY TYSON introduced self and role at [facility], pt voices understanding and consents to assessment at this time. Pt is lying in bed in no distress at this time. Pt is A/Ox4 at this time and answers all questions appropriately at this time. Care providers, pharmacy, and demographics verified/updated at this time. Presentation: SOB, N/V/D, Abd pain, body aches for 2 weeks Admitting dx: Pyelonephritis PCP: Pt states recently moved here and does not have PCP in area. This LENY TYSON attempted to print local PCP list for pt at this time without success. Pt aware that she can look up in-network PCP's on [facility] website, voices understanding. Specialists: Pt states no current specialists. Preferred Pharmacy: [facility] Insurance: [facility] community plan/[employer] Prescription Benefit: Yes Living Will/HPOA: Pt states does not have LW/HPOA and declines AD info at this time. LNOK: Andrzej Tiwari, sig other Living Arrangements: Pt states lives with sig other in mobile home and states no concerns at home at this time. Pt states is independent with ADL's. Transportation: Pt states drives self when she has a car and states no transportation concerns at this time. DME/HHC: Pt states no DME or need for any DME at this time. Pt states no hx of HHC or SNF in the past. Pt states no concerns with going home at time of discharge. Pt states is unemployed. Pt states does not smoke or drink ETOH. Pt states no further concerns/needs at this time. CM to follow for any further discharge planning/needs. Advised pt to ask for CM if any further questions/concerns/needs arise, voices understanding. Pt Goal: Home Plan: [place] LENY TYSON
[2019-12-25] MEDS: Rizatriptan Benzoate 10 MG Tablet PO (13:16)
[2019-12-25 14:36] VITALS: BP 123/58; PULSE 108; RESP 18; TEMP 37; O2SAT 97
[2019-12-25] MEDS: oxyCODONE 5 MG Tablet PO (16:05)
[2019-12-25 20:37] VITALS: BP 127/77; PULSE 119; RESP 16; TEMP 36.9; O2SAT 94
[2019-12-25] MEDS: Acetaminophen 325 MG Tablet 650 MG PO (20:39)
[2019-12-25] MEDS: DULoxetine Hcl 30 MG Capsule PO (21:17)
[2019-12-26 02:44] VITALS: BP 121/71; PULSE 101; RESP 18; TEMP 36.8; O2SAT 94
[2019-12-26] MEDS: Enoxaparin 40 MG/0.4 ML Syringe SC (04:57)
[2019-12-26 05:34] LABS: Absolute Lymphocyte Count 1.26 X10^3/uL (0.83-4.51); Absolute Neutrophil Count 8.4 X10^3/uL (2.0-7.7); Basophil# 0.06 X10^3/uL; Basophil% 0.5 % (0-1); Eosinophil# 0.37 X10^3/uL; Eosinophils% 3.2 % (0-5); Hematocrit 28.7 % (37-47); Hemoglobin 9.5 g/dL (12.0-15.0); Lymphocyte # 1.26 X10^3/ul (4.0); Lymphocyte % 10.8 % (19-41); Mean Corp Hgb Conc 33.1 g/dL (32-36); Mean Corpuscular Hgb 32.5 pg (27.0-32.0); Mean Corpuscular Volume 98.3 fL (81-99); Mean Platelet Vol. 9.4 fl (6.2-12.0); Monocyte% 11.1 % (0-10); NRBC Flagged by Analyzer 0 % (0-5); Neutrophil # 8.38 X10^3/uL (2.7-7.7); Neutrophil % 71.7 % (47-70); POSITIVE COUNT YES; RBC Distribution Width SD 46.8 fl (35.1-43.9); Red Blood Count 2.92 M/mm3 (4.2-5.4); White Blood Count 11.7 K/mm3 (4.4-11.0)
[2019-12-26 05:51] LABS: Differential Indicated SCAN CRITERIA MET; Platelet Count 770 K/mm3 (150-450)
[2019-12-26] MEDS: oxyCODONE 5 MG Tablet PO ×3 (06:01→21:54)
[2019-12-26] MEDS: guaiFENesin 10 ML UDC (200MG/10ML) 20 ML PO ×3 (06:01→21:53)
[2019-12-26 06:06] LABS: ALB/GLOB Ratio 0.3 RATIO (0.9-2.4); AST(SGOT) 139 U/L (15-37); Alanine Aminotransfer ALT/SGPT 75 U/L (13-56); Albumin, Serum 1.7 g/dL (3.2-5.0); Alkaline Phosphatase 220 U/L (45-117); Anion Gap 9 (5-15); BUN 3 mg/dL (7-18); BUN/Creat Ratio 7.9 RATIO (10-20); Calcium,Total 8.6 mg/dL (8.5-10.1); Chloride 100 mmol/L (98-107); Creatinine, Serum 0.38 mg/dL (0.55-1.02); EST Glomerular Filtration Rate 219 mL/min (>60); Est Glom Filt Rate - Afr Amer 265 mL/min (>60); Estimated Creatinine Clearance 230.28 ml/min; Globulin 5.3 g/dL (2.2-4.2); Glucose 101 mg/dL (74-106); Potassium 3.7 mmol/L (3.5-5.1); Sodium Level 135 mmol/L (136-145)
[2019-12-26 06:31] LABS: Differential Comment SCANNED
[2019-12-26 07:36] VITALS: O2SAT 95
[2019-12-26 08:16] VITALS: BP 133/66; PULSE 96; RESP 16; TEMP 36.7; O2SAT 94
[2019-12-26] MEDS: Hydroxychloroquine 200 MG Tablet PO ×2 (08:24→15:55)
[2019-12-26] MEDS: Gabapentin 600 MG Tablet PO ×3 (08:24→15:56)
[2019-12-26] MEDS: Ciprofloxacin 400 MG/200 ML BAG 200 MG IV ×2 (09:08→21:54)
--- NOTE | 2019-12-26 09:53 | PCM.PN.HOSP ---
Patient Problems: Active and Suspected Problems Pyelonephritis (Acute) Thrombocytosis (Acute) Intractable diarrhea (Acute) Hyponatremia (Acute) Hypokalemia (Acute) Abnormal LFTs (Acute) Normochromic normocytic anemia (Acute) Subjective: Doing little bit better today Vitals/I&O's: Vital Signs Temp Pulse Resp BP Pulse Ox 98.1 F 96 16 133/66 H 94 12/26/19 08:16 12/26/19 08:16 12/26/19 08:16 12/26/19 08:16 12/26/19 08:16 Oxygen Delivery Method Room Air Weight: 204 lb 12.951 oz Body Mass Index (BMI) 31.1 Intake and Output for Last 24 Hours 12/24/19 12/25/19 12/26/19 23:59 23:59 23:59 Intake Total 1327.5 / 1327.5 4692.5 / 4692.5 1999 Output Total 1620 / 1620 950 / 950 Balance 1327.5 / 1327.5 3072.5 / 3072.5 1050 / 1050 General: Alert, Oriented x3, Cooperative, No apparent distress HEENT: Atraumatic, PERRLA, EOMI, Normocephalic Oral: Moist Mucosa Neck: Supple, No JVD Lungs: Clear to auscultation, Normal air movement, No rhonchi, No wheeze, No rales Cardiovascular: Regular rate, Regular Rhythm, Normal S1, Normal S2, No murmurs Abdomen: Soft, Non Tender, Non-Distended, No Hepato-splenomegaly Extremities: No edema, Capillary Refill Less than 3 Seconds Skin: No rashes, No breakdown Neurological: Neuro grossly intact, Sensory exam intact to light touch and pain Psych/Mental Status: Normal Affect, Appropriate Microbiology Past 72 Hours 12/24/19 23:10 Mucosa - Nasopharyngeal Respiratory Panel (PCR) - Final 12/24/19 21:25 Urine, Random Streptococcus pneumoniae Antigen (M - Final 12/24/19 21:25 Urine, Random Legionella Antigen - Final Laboratory Results 12/26/19 05:18: WBC 11.7 H, RBC 2.92 L, Hgb 9.5 L, Hct 28.7 L, MCV 98.3, MCH 32.5 H, MCHC 33.1, RDW Std Deviation 46.8 H, RDW Coeff of Maite 13.0, Plt Count 770 H*, MPV 9.4, Immature Gran % (Auto) 2.700 H, Neut % (Auto) 71.7 H, Lymph % (Auto) 10.8 L, [place] % (Auto) 11.1 H, Eos % (Auto) 3.2, Baso % (Auto) 0.5, Absolute Neuts (auto) 8.4 H, Absolute Lymphs (auto) 1.26, Nucleated RBC % 0, Differential Comment SCANNED, Diff Path Review November foll 12/26/19 05:18: Sodium 135 L, Potassium 3.7, Chloride 100, Carbon Dioxide 26.0, Anion Gap 9, BUN 3 L, Creatinine 0.38 L, Estim Creat Clear Calc 230.28, Est GFR (MDRD) Af Amer 265, Est GFR (MDRD) Non-Af 219, BUN/Creatinine Ratio 7.9 L, Glucose 101, Calcium 8.6, Total Bilirubin 1.90 H, AST 139 H, ALT 75 H, Alkaline Phosphatase 220 H, Total Protein 7.0, Albumin 1.7 L, Globulin 5.3 H, Albumin/Globulin Ratio 0.3 L Current Medications Acetaminophen (Tylenol) 650 mg PO Q6H PRN PRN PRN Reason: Pain Score 1-10/Temp > 100.7 F Last Admin: 12/25/19 20:39 Dose: 650 mg Documented by: Duloxetine HCl (Cymbalta) 30 mg PO QHS [facility] Last Admin: 12/25/19 21:17 Dose: 30 mg Documented by: Enoxaparin Sodium (Lovenox) 40 mg SC DAILY@0600 [facility] Last Admin: 12/26/19 04:57 Dose: 40 mg Documented by: Gabapentin (Neurontin) 600 mg PO TIDCM [facility] Last Admin: 12/26/19 08:24 Dose: 600 mg Documented by: Guaifenesin (Robitussin) 20 ml PO Q4H PRN PRN PRN Reason: COUGH Last Admin: 12/26/19 06:01 Dose: 20 ml Documented by: Hydroxychloroquine Sulfate (Plaquenil) 200 mg PO BIDCM [facility] Last Admin: 12/26/19 08:24 Dose: 200 mg Documented by: Ciprofloxacin (Cipro) 400 mg in 200 mls @ 200 mls/hr IV Q12 [facility] Stop: 12/31/19 22:01 Last Admin: 12/26/19 09:08 Dose: 200 mls/hr Documented by: Potassium Chloride 20 meq/ (Lactated Ringer's) 1,010 mls @ 150 mls/hr IV .[id number] [facility] Last Infusion: 12/26/19 08:25 Dose: Infused Documented by: Pantoprazole Sodium 40 mg/ (Sodium Chloride) 110 mls @ 330 mls/hr IV Q24 [facility] Last Infusion: 12/26/19 08:45 Dose: Infused Documented by: Sodium Chloride () 250 mls @ 15 mls/hr IV .[id number] PRN PRN Reason: Saline Flush Sodium Chloride () 250 mls @ 15 mls/hr IV .[id number] PRN PRN Reason: Additional IVPB Infusion Morphine Sulfate () 4 mg IV Q3H PRN PRN PRN Reason: Pain Score 6-10/10 Last Admin: 12/24/19 23:26 Dose: 4 mg Documented by: Oxycodone HCl (Oxyir) 5 - 10 mg PO Q4H PRN PRN PRN Reason: Pain Score 4-5/10 Last Admin: 12/26/19 06:01 Dose: 5 mg Documented by: Prochlorperazine Edisylate (Compazine Iv) 5 mg IV Q4H PRN PRN PRN Reason: Breakthrough nausea/vomiting Rizatriptan Benzoate (Maxalt) 10 mg PO DAILY PRN PRN PRN Reason: MIGRAINE SYMPTOMS Last Admin: 12/25/19 13:16 Dose: 10 mg Documented by: Sodium Chloride () 10 - 40 ml IV UD PRN PRN Reason: SALINE FLUSH Last Admin: 12/24/19 23:28 Dose: 10 ml Documented by: Zolpidem Tartrate (Ambien (Generic)) 5 mg PO QHS PRN PRN PRN Reason: INSOMNIA STROKE Vital Signs/Narrative: Vital Signs Temp Pulse Resp BP Pulse Ox 12/26/19 08:16 98.1 F 96 16 133/66 H 94 12/26/19 07:36 95 Medical Necessity - Tobacco Use Smoking Status: Never smoker Tobacco Use: Non-smoker Assessment/Plan All Active Problems Pyelonephritis (Acute) Thrombocytosis (Acute) Intractable diarrhea (Acute) Hyponatremia (Acute) Hypokalemia (Acute) Abnormal LFTs (Acute) Normochromic normocytic anemia (Acute) 1. Pyelonephritis/elevated LFTs -UA is fairly significant for UTI, urine cultures pending -Continue with Cipro IV twice daily for now -Pyelonephritis and RA is the likely culprit for her thrombocytosis and elevated d-dimer -Bilirubin is trending down, and CT of her abdomen pelvis as well as her gallbladder ultrasound were negative for any gallbladder pathology -Liver is unremarkable -Continue to trend LFTs, she has no previous labs in our system -COVID test negative and there is an alternative diagnosis 2. RA/normocytic normochromic anemia -Her anemia is likely chronic secondary to her RA -Continue with her Plaquenil 3. migraines with chronic narcotic -Stable -Continue with Cymbalta, gabapentin, and Imitrex DVT: Lovenox Inpatient E&M: 19934 Subs Hosp L2
--- NOTE | 2019-12-26 14:29 | NURSING ---
Update given to Pts mother
[2019-12-26 15:50] VITALS: BP 144/84; PULSE 98; RESP 18; TEMP 36.8; O2SAT 95
[2019-12-26] MEDS: proCHLORPERazine 10 MG/2 ML Vial 5 MG IV (15:55)
[2019-12-26 21:51] VITALS: BP 111/61; PULSE 116; RESP 16; TEMP 36.6; O2SAT 95
[2019-12-26] MEDS: DULoxetine Hcl 30 MG Capsule PO (21:59)
[2019-12-27 03:51] VITALS: BP 109/64; PULSE 103; RESP 16; TEMP 36.7; O2SAT 95
[2019-12-27] MEDS: Enoxaparin 40 MG/0.4 ML Syringe SC (04:33)
[2019-12-27] MEDS: oxyCODONE 5 MG Tablet PO (04:34)
[2019-12-27 06:05] LABS: Absolute Lymphocyte Count 1.98 X10^3/uL (0.83-4.51); Absolute Neutrophil Count 5.4 X10^3/uL (2.0-7.7); Basophil# 0.06 X10^3/uL; Basophil% 0.6 % (0-1); Eosinophil# 0.48 X10^3/uL; Eosinophils% 5.1 % (0-5); Hematocrit 29.2 % (37-47); Hemoglobin 9.6 g/dL (12.0-15.0); Lymphocyte # 1.98 X10^3/ul (4.0); Lymphocyte % 20.8 % (19-41); Mean Corp Hgb Conc 32.9 g/dL (32-36); Mean Corpuscular Hgb 32.9 pg (27.0-32.0); Mean Platelet Vol. 9.3 fl (6.2-12.0); Monocyte# 1.12 X10^3/uL; Monocyte% 11.8 % (0-10); NRBC Flagged by Analyzer 0 % (0-5); Neutrophil # 5.43 X10^3/uL (2.7-7.7); Neutrophil % 57.2 % (47-70); POSITIVE COUNT YES; RBC Distribution Width CV 13.3 % (11.6-14.6); RBC Distribution Width SD 48.3 fl (35.1-43.9); Red Blood Count 2.92 M/mm3 (4.2-5.4); White Blood Count 9.5 K/mm3 (4.4-11.0)
[2019-12-27 06:24] LABS: Differential Indicated SCAN CRITERIA MET; Platelet Count 772 K/mm3 (150-450)
[2019-12-27 06:29] LABS: ALB/GLOB Ratio 0.3 RATIO (0.9-2.4); AST(SGOT) 80 U/L (15-37); Alanine Aminotransfer ALT/SGPT 59 U/L (13-56); Albumin, Serum 1.7 g/dL (3.2-5.0); Alkaline Phosphatase 191 U/L (45-117); Anion Gap 7 (5-15); BUN 3 mg/dL (7-18); BUN/Creat Ratio 6.7 RATIO (10-20); Calcium,Total 8.6 mg/dL (8.5-10.1); Chloride 101 mmol/L (98-107); Creatinine, Serum 0.44 mg/dL (0.55-1.02); EST Glomerular Filtration Rate 183 mL/min (>60); Est Glom Filt Rate - Afr Amer 222 mL/min (>60); Estimated Creatinine Clearance 198.88 ml/min; Glucose 94 mg/dL (74-106); Potassium 4.1 mmol/L (3.5-5.1); Protein, Total 6.7 g/dL (6.4-8.2); Sodium Level 136 mmol/L (136-145)
[2019-12-27 07:18] LABS: Differential Comment SCANNED; Platelet Estimate MOD INC (ADEQ)
[2019-12-27 07:49] VITALS: O2SAT 94
[2019-12-27] MEDS: Hydroxychloroquine 200 MG Tablet PO (09:18)
[2019-12-27] MEDS: Gabapentin 600 MG Tablet PO ×2 (09:18→13:08)
[2019-12-27 09:21] VITALS: BP 137/80; PULSE 98; RESP 16; TEMP 36.6; O2SAT 98
--- NOTE | 2019-12-27 09:26 | NURSING ---
IV leaking and painful, removed by Primary RN. pt difficult stick approved leaving IV out at this time. pt resting in bed, call light in reach. Will continue to monitor.
--- NOTE | 2019-12-27 11:47 | DCINST_ITS ---
- Discharge Diagnoses Current Active Problems: Current Active and Chronic Problems Pyelonephritis (Acute) Thrombocytosis (Acute) Intractable diarrhea (Acute) Hyponatremia (Acute) Hypokalemia (Acute) Abnormal LFTs (Acute) History of rheumatoid arthritis (Chronic) Normochromic normocytic anemia (Acute) You will use the following diet at home:: Regular Your food should be the consistency of: Regular Your liquids should be the consistency of: Regular/Thin Discharge Activity: Return to Normal Activity Call your doctor if you observe: Fever of 101 or Higher, Shortness of breath, Dizziness, Fainting spells, Swelling in the ankles, Chest pain, Increased palpitations (irregular heartbeat) Additional Instructions: Repeat liver function test and CBC to monitor platelets by your primary care doctor. Allergies/Adverse Reactions: Allergies No Known Allergies Allergy (Verified 12/24/19 12:10) Medications to take at Discharge Duloxetine HCl 60 mg PO DAILY 12/24/19 Gabapentin 1,200 mg PO QHS 12/24/19 Gabapentin 600 mg PO DAILY@1200 12/24/19 Hydroxychloroquine [Plaquenil] 200 mg PO DAILYCM 12/24/19 Sumatriptan Succinate [Imitrex] 100 mg PO DAILY PRN PRN 12/24/19 Ciprofloxacin [Cipro] 500 mg PO BID #10 tab 12/27/19 The following prescriptions were given: Ciprofloxacin [Cipro] 500 mg PO BID #10 tab Transmission Status: Sent to [facility] Primary Care Physician: Care Physician,No Primary [Primary Care Provider] - Please follow up with your Primary Care Physician in: 3-5 days Test Results: Test results from this visit will be discussed in further detail at your follow- up appointment, if applicable. Please Follow Up With: Marce Guzman When: Previously scheduled
[2019-12-27] MEDS: Ondansetron ODT 4 MG Tablet PO (13:08)
--- NOTE | 2019-12-27 14:13 | DS.PCM_ITS ---
Discharge Date and Diagnosis Date of Admission: 12/24/19 Date of Discharge: 12/27/19 - Secondary Discharge Diagnosis Chronic Problems: Chronic Problems History of rheumatoid arthritis (Chronic) Hospital Course and Treatment Imaging Results: CT Abd/pelvis: MPRESSION: 1. Hazy, groundglass opacities in the lung bases, greater on the left. Findings are concerning for pneumonia, including possible viral etiology. Otherwise unremarkable CT abdomen and pelvis. CT Chest:IMPRESSION: 1. No evidence of pulmonary embolism or aortic dissection. 2. Diffuse areas of likely centrilobular groundglass opacities and punctate nodularity which is most concerning for underlying hypersensitivity pneumonitis. Underlying infectious airway mycobacterial infection is also a consideration with underlying vasculitis, pulmonary edema and bronchioloalveolar carcinoma less likely. RUQ US: IMPRESSION: Normal right upper quadrant ultrasound examination. CXR: IMPRESSION: Mild increased markings at the lung bases suggestive of possible viral infiltrate. Consults: None Operations: None Procedures: None Summary of Care Provided: Per HPI: The patient is a 24 year old F with a past medical history of rheumatoid arthritis, neuropathic pain for which she takes Neurontin and obesity who presented to the ED at [facility] on next 1919 complaining of a two-week history of diarrhea, nausea/vomiting, diffuse muscle pain, dry cough, shortness of breath and chest pain. She denies any loss of smell or loss of taste. She has no sick contacts. She says she was having 8-10 stools a day. She denies dysuria, rigors, fevers. Vital signs at presentation to the emergency department are temperature 97.8, pulse rate 117, blood pressure 137/93, respiratory rate 22 and she was 95% saturated on room air. White blood cell count is elevated at 18.1 with left shift. Hemoglobin is 11.3 with normochromic normocytic indices and the platelet count was increased at 744,000. Sodium is low at 131 and the potassium is low at 3.0. Serum bicarb is 25. The BUN is 9 with a creatinine of 0.8. Total bilirubin was increased at 2.3 with a direct bilirubin of 1.39. AST is 136 and the ALT is 78 with an alkaline phosphatase of 255. Lipase is 46 and the serum albumin is low at 2. UA shows greater than 100 RBCs per high-power field and 10-25 WBCs. There was 3+ bacteria and it was nitrite positive. She h ad positive ketones. Chest x-ray per my review shows atelectasis in the bases however the radiologist reported increased markings suggestive of possible viral infiltrate. Right upper quadrant ultrasound was normal. CT scan of the abdomen and pelvis showed hazy groundglass opacities in the lung bases, greater on the left which was concerning for pneumonia. The abdomen and pelvis were unremarkab le. She is being admitted for pyelonephritis but will keep in the ED until the COVID test comes back in light of the abn LFT's and the ground glass infiltrates in both lung bases. Hospital Course: 1. Pyelonephritis/elevated LFTs with acute [id number] female with a history of rheumatoid arthritis presented to the hospital abdominal pain, and cough. She was found to have an elevated white count as well as an elevated platelet count of 7.4. She also had an elevated d-dimer, however is negative. Groundglass opacities in both. She did test negative COVID. Because of her elevated white count she was started on Cipro twice daily and a urine culture was pending however this came back with mixed gram-positive and gram-negative organisms. However because her white count has been improving she was discharged on 5 more days of p.o. Cipro. I did discuss thrombocytosis and elevated LFTs with her dielectric embossing machine operator. In April 2019 her platelets were 394, and her LFTs were normal. Therefore her thrombocytosis is likely reactive secondary to the infection as well as her arthritis. Would recommend she have outpatient CBCs performed to make sure that as the infection is clearing up that his platelets start to return to normal if not she will likely need to follow-up with hematology. As for her LFTs, her ultrasound was unremarkable and a CT scan did not show any significant liquid pathology, and her numbers are improving every day therefore would make sure that she has a CMP done as an outpatient to demonstrate that they have returned to normal however no further work-up in the inpatient side is warranted. I did discuss with her the possibility of discharge today, she said that she was ready to go and that while her she is back to her chronic level of pain she is feeling better than when she came into the hospital. She does express understanding of the risks and benefits of discharge today. Only complaint with the OVERLOCK SEWING MACHINE OPERATOR is follow-up with her dielectric embossing machine operator previously scheduled appointments. 2. Her other medical diagnoses were evaluated and her home medications were continued where appropriate - Physical Exam Vitals/I&O's: Vital Signs Temp Pulse Resp BP Pulse Ox 97.9 F 98 16 137/80 H 98 12/27/19 09:21 12/27/19 09:21 12/27/19 09:21 12/27/19 09:21 12/27/19 09:21 Oxygen Delivery Method Room Air Weight: 204 lb 12.951 oz Body Mass Index (BMI) 31.1 Intake and Output for Last 24 Hours 12/25/19 12/26/19 12/27/19 23:59 23:59 23:59 Intake Total 4692.5 / 4692.5 4110 / 4710 3285 / 3285 Output Total 1620 / 1620 1850 / 1950 100 / 100 Balance 3072.5 / 3072.5 2260 / 2760 3185 / 3185 General: Alert, Oriented x3, Cooperative, No apparent distress HEENT: Atraumatic, PERRLA, EOMI, Normocephalic Oral: Moist Mucosa Neck: Supple, No JVD Lungs: Clear to auscultation, Normal air movement, No rhonchi, No wheeze, No rales Cardiovascular: Regular rate, Regular Rhythm, Normal S1, Normal S2, No murmurs Abdomen: Soft, Non Tender, Non-Distended, No Hepato-splenomegaly Extremities: No edema, Capillary Refill Less than 3 Seconds Skin: No rashes, No breakdown Neurological: Neuro grossly intact, Sensory exam intact to light touch and pain Psych/Mental Status: Normal Affect, Appropriate Microbiology Past 72 Hours 12/24/19 21:25 Urine, Clean Catch Urine Culture - Final Mixed Gram Positive Organisms 12/24/19 23:10 Mucosa - Nasopharyngeal Respiratory Panel (PCR) - Final 12/24/19 21:25 Urine, Random Streptococcus pneumoniae Antigen (M - Final 12/24/19 21:25 Urine, Random Legionella Antigen - Final Laboratory Results 12/27/19 05:52: WBC 9.5, RBC 2.92 L, Hgb 9.6 L, Hct 29.2 L, MCV 100.0 H, MCH 32.9 H, MCHC 32.9, RDW Std Deviation 48.3 H, RDW Coeff of Maite 13.3, Plt Count 772 H*, MPV 9.3, Immature Gran % (Auto) 4.500 H, Neut % (Auto) 57.2, Lymph % (Auto) 20.8, [place] % (Auto) 11.8 H, Eos % (Auto) 5.1 H, Baso % (Auto) 0.6, Absolute Neuts (auto) 5.4, Absolute Lymphs (auto) 1.98, Nucleated RBC % 0, Differential Comment SCANNED, Diff Path Review November foll, Platelet Estimate MOD INC 12/27/19 05:52: Sodium 136, Potassium 4.1, Chloride 101, Carbon Dioxide 28.0, Anion Gap 7, BUN 3 L, Creatinine 0.44 L, Estim Creat Clear Calc 198.88, Est GFR (MDRD) Af Amer 222, Est GFR (MDRD) Non-Af 183, BUN/Creatinine Ratio 6.7 L, Glucose 94, Calcium 8.6, Total Bilirubin 0.80, AST 80 H, ALT 59 H, Alkaline Phosphatase 191 H, Total Protein 6.7, Albumin 1.7 L, Globulin 5.0 H, Albumin/Globulin Ratio 0.3 L Discharge Activity: Return to Normal Activity Call your doctor if you observe: Fever of 101 or Higher, Shortness of breath, Dizziness, Fainting spells, Swelling in the ankles, Chest pain, Increased palpitations (irregular heartbeat) Home Medications: Medications to take at Discharge Duloxetine HCl 60 mg PO DAILY 12/24/19 Gabapentin 1,200 mg PO QHS 12/24/19 Gabapentin 600 mg PO DAILY@1200 12/24/19 Hydroxychloroquine [Plaquenil] 200 mg PO DAILYCM 12/24/19 Sumatriptan Succinate [Imitrex] 100 mg PO DAILY PRN PRN 12/24/19 Ciprofloxacin [Cipro] 500 mg PO BID #10 tab 12/27/19 Following Prescrptions Were Given to Patient: Ciprofloxacin [Cipro] 500 mg PO BID #10 tab Transmission Status: Received by [facility] Primary Care Physician: Care Physician,No Primary [Primary Care Provider] - Please follow up with your Primary Care Physician in: 3-5 days Please Follow Up With: Marce Guzman When: Previously scheduled Please Follow Up With: Kadie Cabral MD Disposition: Home Minutes spent on discharge:: 35 Patient Condition:: Stable Medical Necessity - Tobacco Use Smoking Status: Never smoker Tobacco Use: Non-smoker Meaningful Use Info Meaningful Use Diagnoses (Choose all that apply): None applicable Inpatient E&M: 59865 Disch Hosp
[2019-12-28 09:54] LABS: Pathologist Review Reviewed
[2019-12-28 10:00] LABS: Pathologist Review Reviewed
== END 2019-12-27 13:27 | disposition home or self-care (01) | DRG 463 ==
LOC: ED 13:10 → MS3 16:55
PROVIDERS: Emergency Medicine; Admitting Provider Internal Medicine; Emergency Provider Emergency Medicine; Visit Provider Family Medicine
DX: N12 Tubulo-interstitial nephritis, not specified as acute or chronic (principal); M06.9 Rheumatoid arthritis, unspecified; R94.5 Abnormal results of liver function studies; E87.6 Hypokalemia; E66.9 Obesity, unspecified; Z79.899 Other long term (current) drug therapy; G62.9 Polyneuropathy, unspecified; Z68.31 Body mass index [BMI] 31.0-31.9, adult; D64.9 Anemia, unspecified; G43.909 Migraine, unspecified, not intractable, without status migrainosus
CPT/HCPCS: 36415; 71045; 71275; 74177; 76705; 80048; 80053; 80076; 81001; 82550; 83605; 83690; 83735; 84100; 85025; 85379; 87040; 87086; 87088; 87449; 87633; 87635; 93005; 97802; 99285; G2023; J7030; J7120; Q9967; A4216; J0744; J2405; U0003